=== PATIENT | male | born 1945 | race Caucasian/White ===

== ENCOUNTER 2019-05-20 08:59 | Outpatient (CLI) | payer MEDICARE, OTHER ==
--- NOTE | 2019-05-20 11:06 | MRI ---
MRI BRAIN WITH AND WITHOUT IV CONTRAST: HISTORY: Head trauma year ago. Memory issues. Mild cognitive impairment, so stated CORRELATION:03/14/2015 FINDINGS: No restricted diffusion is seen. No evidence of infarct, hemorrhage, mass, midline shift or abnormal extra-axial fluid collections is noted. No abnormal postcontrast enhancement is seen. The ventricular size is appropriate and the basilar cisterns are patent. There are multiple foci of T2 prolongation in the periventricular white matter, consistent with chron ic small vessel ischemic disease. There is mucosal disease in the paranasal sinuses. IMPRESSION: No evidence of acute intracranial process or mass.
== END 2019-05-20 09:00 | disposition home or self-care (01) ==
LOC: SCSMRI 08:59
PROVIDERS: ATTEND Psychiatry & Neurology Neurology
DX: G31.84 Mild cognitive impairment of uncertain or unknown etiology (principal)
CPT/HCPCS: 70553; 82565